=== PATIENT | male | born 1965 | race Caucasian/White ===

== ENCOUNTER 2017-05-10 07:09 | Emergency (ER) | payer OTHER ==
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
[2017-05-10] MEDS ORDERED: Diphtheria,Pertussis(Acell),Tetanus Vaccine 0.5 ML Syringe IM ONE (07:30)
[2017-05-10 08:02] LABS: CHLORIDE,CL 107 mmol/L (98-110); SODIUM,NA 140 mmol/L (136-146)
[2017-05-10 10:31] VITALS: BP 133/82
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
[2017-05-10] MEDS ORDERED: Iopamidol 755 MG/ML 500 ML Multipack Bottle IVPUSH STA (16:11)
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
== END 2017-05-10 10:19 | disposition home or self-care (01) ==
LOC: MW.ED 07:09
DX: S42.115A Nondisplaced fracture of body of scapula, left shoulder, initial encounter for closed fracture (principal); S00.81XA Abrasion of other part of head, initial encounter; V87.7XXA Person injured in collision between other specified motor vehicles (traffic), initial encounter
CPT/HCPCS: 36415; 70450; 71260; 72125; 73030; 73060; 80053; 80305; 81001; 85025; 90471; 90715; 99284; G0480; Q9967; 99283